=== PATIENT | male | born 1995 | race Two or more races ===

== ENCOUNTER 2020-12-29 23:30 | Inpatient (IN) | payer MEDICAID ==
[~2020-12-29] VITALS: Ht 188 cm; Wt 119.6 kg
[2020-12-30] MEDS ORDERED: MORPHINE SULFATE INJECTION 2 MG/ML SYRG ONE (05:13)
[2020-12-30] MEDS ORDERED: MORPHINE SULFATE INJECTION 2 MG/ML SYRG IV ONE (05:15)
[2020-12-30] MEDS ORDERED: ONDANSETRON HCL 4 MG/2 ML VIAL IV ONE (05:15)
[2020-12-30 05:37] LABS: Basophils # (auto) 0 10 ^3/uL (0-0.2); Basophils % (auto) 0.2 % (0.0-2.0); Eosinophils # (auto) 0 10 ^3/uL (0-0.8); Eosinophils % (auto) 0.4 % (0.0-7.0); Hematocrit 35.5 % (41.0-53.0); Hemoglobin 12.5 g/dL (13.5-17.5); Lymphocytes # (auto) 1.5 10 ^3/uL (0.4-5.4); Lymphocytes % (auto) 18.1 % (10.0-50.0); Mean Corpuscular Hemoglobin 30.8 pg (28.0-32.0); Mean Corpuscular Hgb Conc. 35.2 g/dL (32.0-36.0); Mean Corpuscular Volume 87.6 fL (80.0-100.0); Monocytes # (auto) 0.8 10 ^3/uL (0-1.3); Neutrophils % (auto) 71.3 % (37.0-80.0); Nucleated Red Blood Cells % 0.1 %; Red Blood Cells 4.05 10^6/uL (4.5-5.90); White Blood Cell 8.5 10^3/uL (4.4-10.8)
[2020-12-30] MEDS ORDERED: HEPARIN SODIUM (PORCINE) 5000 UNITS/ML 1ML VIAL IV ONE (07:00)
[2020-12-30] MEDS: HEPARIN DRIP/D5W 100UNITS/ML 250 ML IV SCH ×2 (07:00→08:46)
[2020-12-30 07:08] LABS: Albumin 3.2 g/dL (3.4-5.0); BUN/Creatinine Ratio 18.8; Bilirubin, Total 0.8 mg/dL (0.2-1.0); Calcium 9.5 mg/dL (8.5-10.1); Potassium 3.9 mmol/L (3.5-5.1); Total Protein 8.1 g/dL (6.4-8.2)
[2020-12-30 08:28] LABS: INR 1.12 (0.9-1.15); Partial Thromboplastin Time 27.4 sec (23.0-31.2)
[2020-12-30] MEDS ORDERED: NITROGLYCERIN 0.4 MG SL TAB SL PRN (09:00)
[2020-12-30] MEDS ORDERED: OXYCODONE W/ ACETAMINOPHEN 5/325MG TABLET PO PRN (09:00)
[2020-12-30] MEDS ORDERED: MORPHINE SULFATE INJECTION 2 MG/ML SYRG IV PRN (09:00)
[2020-12-30] MEDS: KETOROLAC TROMETH 30 MG/ML 1ML VIAL IV ONE ×2 (09:30→10:14)
[2020-12-30] MEDS: SODIUM CHLORIDE 0.9% 1,000 ML IV SCH ×2 (09:30→18:33)
[2020-12-30] MEDS: LACTULOSE 20Gm/30ML SOLN PO SCH ×4 (09:30→21:41)
[2020-12-30] MEDS: POLYETHYLENE GLYCOL 17 GM PWDR PO SCH (09:31)
[2020-12-30] MEDS: ENOXAPARIN SOD 40 MG/0.4 ML SYRINGE SC SCH (09:35)
[2020-12-30 10:28] LABS: Urine WBC None Seen /hpf (0 - 3)
[2020-12-30 10:48] LABS: Urine Bacteria NONE SEEN /hpf (None Seen); Urine Blood Negative /uL (Negative); Urine Mucus FEW (None Seen)
[2020-12-30 10:54] LABS: Urine Specific Gravity > 1.050 (1.001-1.035)
[2020-12-30] MEDS ORDERED: PERCOT PO (14:32)
[2020-12-30] MEDS ORDERED: HYDR-4902 PO (14:36)
[2020-12-30] MEDS ORDERED: IBUP600T28 PO (14:37)
[2020-12-30] MEDS: METOCLOPRAMIDE HCL 5MG/ml INJ 2ml VIAL IV SCH ×2 (15:02→21:41)
[2020-12-30 17:00] VITALS: BP 132/73
[2020-12-30] MEDS: MORPHINE SULFATE INJECTION 2 MG/ML SYRG IV PRN (18:43)
[2020-12-30 20:00] VITALS: BP 131/78
[2020-12-30 22:00] VITALS: BP 131/78
[2020-12-31] MEDS: LACTULOSE 20Gm/30ML SOLN PO SCH ×4 (02:00→13:11)
[2020-12-31] MEDS: MORPHINE SULFATE INJECTION 2 MG/ML SYRG IV PRN (02:21)
[2020-12-31] MEDS ORDERED: HYDROcodone-ACET 10/325MG TAB PO ONE (03:00)
[2020-12-31 05:00] VITALS: BP 122/71
[2020-12-31] MEDS: SODIUM CHLORIDE 0.9% 1,000 ML IV SCH (05:08)
[2020-12-31] MEDS: METOCLOPRAMIDE HCL 5MG/ml INJ 2ml VIAL IV SCH ×2 (06:33→13:11)
[2020-12-31 08:54] VITALS: BP 124/69
[2020-12-31 08:59] VITALS: BP 130/72
[2020-12-31] MEDS: ENOXAPARIN SOD 40 MG/0.4 ML SYRINGE SC SCH (09:15)
[2020-12-31] MEDS: POLYETHYLENE GLYCOL 17 GM PWDR PO SCH (09:16)
[2020-12-31 12:54] VITALS: BP 134/80
[2020-12-31 13:34] VITALS: BP 134/80
== END 2020-12-31 14:30 | disposition home or self-care (01) | DRG 254 ==
LOC: ER 23:30 → TELE 12-30 08:56 → TELE-EAST 12-30 12:33
PROVIDERS: ADMIT Nurse Practitioner Acute Care; ATTEND Internal Medicine
DX: K59.03 Drug induced constipation (principal); E66.9 Obesity, unspecified; J98.11 Atelectasis; R79.89 Other specified abnormal findings of blood chemistry; T40.605A Adverse effect of unspecified narcotics, initial encounter; Z20.822 Contact with and (suspected) exposure to COVID-19; Z88.8 Allergy status to other drugs, medicaments and biological substances
CPT/HCPCS: 36415; 71045; 71260; 74177; 80053; 81001; 83605; 83615; 85025; 85049; 85379; 85610; 85730; 87081; 87426; 93005; 93970; 96361; 96374; 96375; G0378; J1885; J2405

== ENCOUNTER 2021-04-16 15:30 | Emergency (ER) | payer MEDICAID ==
[~2021-04-16] VITALS: Ht 182.9 cm; Wt 120.2 kg
[~2021-04-16 15:30] MED LIST: IBUP600T28 PO; PERCOT PO
[2021-04-16 15:51] VITALS: BP 147/96
== END 2021-04-16 16:19 | disposition left against medical advice (07) ==
LOC: ER 15:30
DX: N48.89 Other specified disorders of penis (principal); Z53.21 Procedure and treatment not carried out due to patient leaving prior to being seen by health care provider

== ENCOUNTER 2023-02-12 21:10 | Emergency (ER) | payer MEDICAID ==
[~2023-02-12] VITALS: Ht 185.4 cm; Wt 143.2 kg
[~2023-02-12 21:10] MED LIST changes: +IBUP1TAB5 PO; -IBUP600T28 PO
[2023-02-12] MEDS ORDERED: ONDANSETRON HCL 4 MG/2 ML VIAL IV ONE (21:30)
[2023-02-12] MEDS ORDERED: MORPHINE SULFATE 4 MG/ML SYR/VIAL IV ONE (21:30)
[2023-02-12 21:44] LABS: Basophils # (auto) 0 10 ^3/uL (0-0.2); Basophils % (auto) 0.5 % (0.0-2.0); Eosinophils # (auto) 0.1 10 ^3/uL (0-0.8); Eosinophils % (auto) 0.8 % (0.0-7.0); Hematocrit 45.6 % (41.0-53.0); Hemoglobin 15.8 g/dL (13.5-17.5); Lymphocytes # (auto) 3.8 10 ^3/uL (0.4-5.4); Lymphocytes % (auto) 41.3 % (10.0-50.0); Mean Corpuscular Hemoglobin 30.6 pg (28.0-32.0); Mean Corpuscular Hgb Conc. 34.7 g/dL (32.0-36.0); Mean Corpuscular Volume 88.2 fL (80.0-100.0); Monocytes # (auto) 0.5 10 ^3/uL (0-1.3); Monocytes % (auto) 5.9 % (0.0-12.0); Neutrophils # (auto) 4.8 10 ^3/uL (1.6-8.6); Neutrophils % (auto) 51.5 % (37.0-80.0); Nucleated Red Blood Cells % 0.1 %; Red Blood Cells 5.17 10^6/uL (4.5-5.90); Red Cell Distribution Width 12.7 % (11.8-14.3); White Blood Cell 9.3 10^3/uL (4.4-10.8)
[2023-02-12 21:45] VITALS: PULSE 109; RESP 19; O2SAT 91
[2023-02-12 22:00] LABS: Albumin 4.2 g/dL (3.4-5.0); Calcium 8.8 mg/dL (8.5-10.1); Potassium 3.3 mmol/L (3.5-5.1)
[2023-02-12 22:03] LABS: BUN/Creatinine Ratio 14.9 (10.0-20.0); Bilirubin, Total 0.3 mg/dL (0.2-1.0)
[2023-02-13] MEDS ORDERED: fentaNYL CITRATE 100 MCG/2 ML VL IV ONE (00:15)
[2023-02-13] MEDS ORDERED: ceFAZolin 2 GM/D5W100ml 100 ML IV ONE (02:00)
[2023-02-13] MEDS ORDERED: TETANUS-DIPTH-ACEL PERTUSSIS 0.5ML SYR Tdap IM ONE (02:00)
[2023-02-13] MEDS ORDERED: LIDOCAINE W/ EPINEPHRINE 2% INJ 20ML VIAL IJ ONE (02:00)
[2023-02-13] MEDS ORDERED: cefTRIAXone 1GM/50ML D5W 50 ML IV ONE (02:00)
[2023-02-13] MEDS ORDERED: HYDROcodone-ACET 10/325MG TAB PO ONE (03:30)
[2023-02-13 03:35] VITALS: BP 133/81; PULSE 91; RESP 17; TEMP 98.4; O2SAT 93
== END 2023-02-13 02:57 | disposition home or self-care (01) ==
LOC: ER 21:10
DX: S91.311A Laceration without foreign body, right foot, initial encounter (principal); Z88.6 Allergy status to analgesic agent; W18.39XA Other fall on same level, initial encounter; Y93.89 Activity, other specified; Y92.89 Other specified places as the place of occurrence of the external cause; Y99.8 Other external cause status
CPT/HCPCS: 12001; 36415; 73630; 80053; 85025; 90471; 90715; 96365; 96375; 99285; J0696; J2270; J2405; J3010